=== PATIENT | male | born 1965 | race Caucasian/White ===

== ENCOUNTER 2023-12-17 01:03 | Day surgery (SDC) | payer BC, SELFPAY ==
[2023-11-27 10:01] VITALS: BMI 26.9
--- NOTE | 2023-12-15 11:36 | PC.NURSE ---
Patient called regarding upcoming procedure. Reviewed preop instructions, appointment times, and procedure prep.
[2023-12-17 12:05] VITALS: BP 121/78; PULSE 64; RESP 18; TEMP 35.8; O2SAT 98; BMI 26.3
[2023-12-17] MEDS: LACTATED RINGERS 1,000 ML 150 ML IV CONT (12:35)
--- NOTE | 2023-12-17 13:14 | PM.HPGS ---
History of Present Illness History of Present Illness Consent: Risks, benefits, and alternatives have been discussed and questions answered. Patient agrees to proceed with procedure. Chief complaint: colon screening Narrative: Dagoberto Ricardo is a 58 year old male here for screening colonoscopy, last one 10 years ago Review of Systems Constitutional: Constitutional: Denies headache(s) and Denies weakness Eyes: Eyes: Denies blurry vision ENT: Reports Normal hearing present, Denies headache(s) and Denies neck pain Cardiovascular: Cardiovascular: Denies chest pain and Denies dyspnea Respiratory: Respiratory: Denies dyspnea Gastrointestinal: Gastrointestinal: Reports no additional gastrointestinal complaints Genitourinary: Genitourinary: Denies dysuria Musculoskeletal: Musculoskeletal: Denies neck pain Integumentary/Breasts: Skin/Breast: Denies dry skin Neurologic: Reports Normal hearing present, Denies headache(s) and Denies weakness Psychiatric: Psychiatric: Denies anxiety Endocrine: Endocrine: Denies change in body appearance Hematologic/Lymphatic: Hematologic/Lymphatic: Denies easy bleeding Allergic/Immunologic: Allergic/Immunologic: Denies urticaria PMFSH Past Medical History Medical History (Updated 12/17/23 @ 13:15 by Reji Cruz MD) Colon cancer screening History of hand fracture Surgical History Surgical History H/O hernia repair H/O repair of rotator cuff H/O vasectomy History of carpal tunnel release of both wrists Family History Family History Father Malignant neoplasm of prostate Mother IBS (irritable bowel syndrome) Other No problems noted. Other Colon polyp Social History Social History Smoking status: Never smoker Second hand tobacco smoke exposure: No Alcohol intake: current Drinks per week: 3 Substance use: never Substance use type: does not use Living arrangements: with family Occupation/Education: occupation Gender identity (if verbalized by the patient): Male Sexual Orientation (if Verbalized by the Patient): Straight or Heterosexual Spiritual care concerns: No Agree to blood products: Yes Meds Home Medications and Allergies Home Medications Medication Instructions Recorded Confirmed Type ezetimibe 10 mg tablet 10 mg PO DAILY #90 tabs 11/13/22 02/28/24 Rx fenofibrate 160 mg tablet See Rx Instructions .Route 02/20/23 12/17/23 Rx .COMPLEX #90 tabs donepezil 5 mg tablet 5 mg PO HS 12/04/23 12/17/23 History Allergies Allergy/AdvReac Type Severity Reaction Status Date / Time rosuvastatin [From Crestor] AdvReac Unknown knee pain Verified 12/17/23 12:10 simvastatin AdvReac Unknown leg cramps Verified 12/17/23 12:10 Vital Signs Vital Signs - 24 hr 12/17/23 12:05 Temperature 96.5 F L Pulse Rate 64 Respiratory Rate 18 Blood Pressure 121/78 Pulse Oximetry 98 Oxygen Delivery Room Air Exam Const: General: comfortable and no acute distress HENMT: Face/Nose/Sinus: Normal nares present Eyes: General: appearance normal, both eyes and all related structures Neck: Neck: no JVD Resp: Auscultation: clear to auscultation bilaterally Cardio: Rate: regular rate Rhythm: regular rhythm GI: Inspection: non-distended GI Palp: Yes Soft to palpation Skin: General skin exam: normal color Neuro: General: gait normal Speech: normal speech Extrem: General: normal to inspection Psych: Mental Status: mental status grossly normal Assessment and Plan Assessment and plan (1) Colon cancer screening: Code(s): Z12.11 - Encounter for screening for malignant neoplasm of colon Status: Acute Assessment and Plan: colonoscopy
--- NOTE | 2023-12-17 13:23 | P.PNAN_ITS ---
Anes - Initial Pre Proc Eval Procedure: Operation Date: 12/17/23 13:30 Proposed Procedures p Colonoscopy - Reji Cruz MD Date/Time: 12/17/23 13:23 Surgeon: Reji Cruz MD Pre Op Diagnosis: colon screening Patient Data Age: 58 Gender: M Height: 1.78 m Weight: 83.2 kg Last Vital Signs Temp 35.8 C L 12/17/23 12:05 Pulse 64 12/17/23 12:05 Resp 18 12/17/23 12:05 BP 121/78 12/17/23 12:05 Pulse Ox 98 12/17/23 12:05 O2 Del Method Room Air 12/17/23 12:05 Allergies Allergy/AdvReac Type Severity Reaction Status Date / Time rosuvastatin [From Crestor] AdvReac Unknown knee pain Verified 12/17/23 12:10 simvastatin AdvReac Unknown leg cramps Verified 12/17/23 12:10 Home Medications Medication Instructions Recorded Confirmed Type ezetimibe 10 mg tablet 10 mg PO DAILY #90 tabs 09/01/22 12/17/23 Rx fenofibrate 160 mg tablet See Rx Instructions .Route 02/20/23 12/17/23 Rx .COMPLEX #90 tabs donepezil 5 mg tablet 5 mg PO HS 12/04/23 12/17/23 History Patient hx anesthesia problems: none Family hx anesthesia problems: none Results Review: All pre-operative results and documents have been reviewed as part of the pre- operative evaluation. [facility] Past Medical History Medical History Colon cancer screening History of hand fracture Surgical History Surgical History H/O hernia repair H/O repair of rotator cuff H/O vasectomy History of carpal tunnel release of both wrists Family History Family History Father Malignant neoplasm of prostate Mother IBS (irritable bowel syndrome) Other No problems noted. Other Colon polyp Social History Social History Smoking status: Never smoker Second hand tobacco smoke exposure: No Alcohol intake: current Drinks per week: 3 Substance use: never Substance use type: does not use Living arrangements: with family Occupation/Education: occupation Gender identity (if verbalized by the patient): Male Sexual Orientation (if Verbalized by the Patient): Straight or Heterosexual Spiritual care concerns: No Agree to blood products: Yes Anes - Eval Final PreProcedure Day of Procedure 12/17/23 13:23 Patient weight: overweight Anesthetic plan: proceed Anesthesia type and monitoring: general GIVS and standard monitoring Results Review: All pre-operative results and documents have been reviewed as part of the pre-operative evaluation. Informed Consent: The patient's anesthetic plan and its attendant risks and benefits were discussed with the patient/family/POA. Questions were solicited and answers provided to the satisfaction of the patient/family/POA.
[2023-12-17 13:43] VITALS: BP 99/72; PULSE 68; RESP 22; O2SAT 94
[2023-12-17 13:53] VITALS: BP 115/78; PULSE 77; RESP 16; O2SAT 98
[2023-12-17 14:03] VITALS: BP 132/71; PULSE 78; RESP 22; O2SAT 99
--- NOTE | 2023-12-17 14:38 | WPDANESEFPP ---
Anes - Eval Final PreProcedure Day of Procedure 12/17/23 14:38 Patient weight: overweight Heart: regular rate and rhythm Lungs: clear to auscultation Airway: Mallampati scale class II Neurological: alert and oriented Last oral intake: >/= 8 hours ASA classification: II Emergent: no Anesthetic plan: proceed Anesthesia type and monitoring: general Results Review: All pre-operative results and documents have been reviewed as part of the pre-operative evaluation. Informed Consent: The patient's anesthetic plan and its attendant risks and benefits were discussed with the patient/family/POA. Questions were solicited and answers provided to the satisfaction of the patient/family/POA.
== END 2023-12-17 14:09 | disposition home or self-care (01) ==
PROVIDERS: PCP Family Medicine; Visit Provider Internal Medicine Gastroenterology
PROC: 0DJD8ZZ Inspection of Lower Intestinal Tract, Via Natural or Artificial Opening Endoscopic (ICD-10-PCS; CPT 45378; principal; 2023-12-17 13:30)
DX: Z12.11 Encounter for screening for malignant neoplasm of colon (principal); K57.30 Diverticulosis of large intestine without perforation or abscess without bleeding; K64.8 Other hemorrhoids
CPT/HCPCS: 45378; J2704; J7120